=== PATIENT | female | born 1995 | race Caucasian/White ===

== ENCOUNTER 2017-09-12 14:17 | Emergency (ER) | payer OTHER ==
[~2017-09-12] VITALS: Ht 170.2 cm; Wt 62.6 kg
== END 2017-09-12 17:38 | disposition home or self-care (01) ==
LOC: ER 14:17
DX: J02.9 Acute pharyngitis, unspecified (principal); D64.89 Other specified anemias; J11.1 Influenza due to unidentified influenza virus with other respiratory manifestations